=== PATIENT | female | born 1970 | race Caucasian/White ===

== ENCOUNTER 2020-02-25 07:32 | Outpatient (CLI) | payer BC, SELFPAY ==
--- NOTE | ~2020-02-25 | MR_ITS ---
EXAMINATION: MR cervical spine wo con EXAM DATE: 02/25/2020 09:16 INDICATION: R53.1 - Weakness . TECHNIQUE: Multi-sequential, multiplanar MR images of the cervical spine were obtained without contra st. Axial T2, axial T2 MERGE sequence. Sagittal T1, T2, T2 fat saturation images also obtained. Com parison is made to prior examination from 09/19/2004. FINDINGS: Mild to moderate disc disease at C5-6 and 6-7. The vertebral bodies are aligned in the AP dimension. There are no suspicious marrow signal abnormalities. Paraspinal soft tissue is unremarkabl e. The spinal cord signal intensity and intrinsic morphology is normal. Cervicomedullary junction is normal in appearance. Level by level evaluation: C2-C3: Disc does not extend beyond the endplate margin. Uncovertebral joint arthropathy: None. Facet joint arthropathy: Moderate right, mild left. Neural foraminal stenosis: No stenosis. Central canal stenosis: No stenosis. C3-C4: Disc does not extend beyond the endplate margin. Uncovertebral joint arthropathy: None. Facet joint arthropathy: Moderate to severe bilateral. Neural foraminal stenosis: No stenosis. Central canal stenosis: No stenosis. C4-C5: There is a minimal diffuse disc bulge. Uncovertebral joint arthropathy: None. Facet joint arthropathy: Severe right, moderate left. Neural foraminal stenosis: Mild right. Central canal stenosis: No stenosis. C5-C6: There is a mild diffuse disc bulge. Uncovertebral joint arthropathy: Mild bilateral. Facet joint arthropathy: Severe right, moderate left. Neural foraminal stenosis: No stenosis. Central canal stenosis: Mild. C6-C7: There is a mild diffuse disc bulge. Uncovertebral joint arthropathy: Mild to moderate bilateral. Facet joint arthropathy: Mild bilateral. Neural foraminal stenosis: Mild to moderate bilateral. Central canal stenosis: Mild. C7-T1: Disc does not extend beyond the endplate margin. Uncovertebral joint arthropathy: None. Facet joint arthropathy: None. Neural foraminal stenosis: No stenosis. Central canal stenosis: No stenosis. There is been interval progression in the facet arthropathy and disc disease compared to 2004. IMPRESSION: Some advanced mid cervical arthropathy without significant stenosis. Reviewed, dictated and finalized at location A. GER MOBILE IMPRESSION: Some advanced mid cervical arthropathy without significant stenosis .
--- NOTE | ~2020-02-25 | MR_ITS ---
EXAMINATION: MR brain/brain stem wo/w con EXAM DATE: 02/25/2020 09:16 INDICATION: R53.1 - Weakness . Left-sided paresthesia. Dizziness. TECHNIQUE: Magnetic resonance imaging (MRI) of the brain/brain stem obtained without contrast. Sagit marcelle T1, axial diffusion, gradient echo (T2*), T1, T2, FLAIR sequences obtained. Patient was then inj ected with 20 cc intravenous Multihance contrast. Axial and coronal postcontrast T1 weighted sequence s obtained. Comparison is made to prior examination from 04/06/2018. FINDINGS: There are no areas of restricted diffusion to suggest acute infarction. Minimal periventric ular hyperintensity, most likely microangiopathy unchanged. There is no acute hemorrhage seen on the T2*, a hemosiderin sensitive sequence. No intraparenchymal brain mass. The ventricles are normal in size. There are no extra-axial collections. Flow voids are seen in the cerebral arteries on the T2- weighted sequences consistent with their expected patency. The orbits are unremarkable. Soft tissue is unremarkable. Moderate left ethmoid mucoperiosteal thickening, mild thickening in the right eth moid and maxillary sinuses bilaterally. There are no areas of abnormal enhancement on the post contra st images. IMPRESSION: 1. Minimal microangiopathy. 2. Mild to moderate mucoperiosteal thickening. Reviewed, dictated and finalized at location A. [employer]PAR[employer]INKLER INSPECTOR
[2020-02-25 08:25] LABS: Estimated Glomerular Filt Rate > 60
== END 2020-02-25 07:33 | disposition home or self-care (01) ==
PROVIDERS: PCP Family Medicine; Visit Provider Physician Assistant
DX: R20.2 Paresthesia of skin (principal); R53.1 Weakness; R42 Dizziness and giddiness
CPT/HCPCS: 70553; 72141; A9577

== ENCOUNTER 2021-06-28 20:20 | Emergency (ER) | payer BC, SELFPAY ==
[2021-06-28] VITALS (8 sets, daily range): BP systolic 150–177; BP diastolic 89–94; PULSE 73–103; RESP 12–19; TEMP 36.5; O2SAT 100
--- NOTE | ~2021-06-28 | XR_ITS ---
EXAMINATION: XR chest 2V DATE: 06/28/2021 22:30 INDICATION: Left-sided chest pain TECHNIQUE: AP and lateral views of the chest are obtained. COMPARISON: 04/14/2015 FINDINGS: The lungs are free of acute opacities. There is no pleural effusion or pneumothorax. The ca rdiomediastinal silhouette is normal. There is mild thoracic spondylosis. IMPRESSION: 1. No acute cardiopulmonary abnormality. Reviewed, dictated and finalized at location F.
--- NOTE | 2021-06-28 20:30 | ECG_ITS ---
Measurements Intervals [place] Rate: 83 P: 40 UT: 170 QRS: 9 QRSD: 89 T: 29 QT: 376 QTc: 443 Interpretive Statements SINUS RHYTHM LOW QRS VOLTAGE IN PRECORDIAL LEADS [QRS DEFLECTION < 1.0 mV IN CHEST LEADS] NO PREVIOUS ECG AVAILABLE FOR COMPARISON Electronically Signed On 06-29-2021 20:46:04 CDT by Janice Meade M.D.
[2021-06-28 22:23] LABS: Basophils Absolute Auto 0.1 K/mm3 (0.0-0.1); Basophils Percent Auto 0.6 % (0.2-1.2); Eosinophils Absolute Auto 0.2 K/mm3 (0-0.3); Eosinophils Percent Auto 1.8 % (0-4.4); Hematocrit 39.2 % (37.0-47.0); Hemoglobin 12.2 g/dL (12.0-15.0); Immature Granulocyte Absolute 0.04 K/mm3 (0.00-0.031); Immature Granulocyte Percent A 0.5 % (0-0.5); Lymphocytes Absolute Auto 2.23 K/mm3 (0.9-3.2); Mean Corpuscular HGB Conc 31.1 g/dl (32-36); Mean Corpuscular Volume 93.3 fl (80-100); Mean Platelet Volume 11.1 fl (7.4-10.4); Monocytes Absolute Auto 0.6 K/mm3 (0.1-0.6); Monocytes Percent Auto 6.9 % (2.6-8.5); Neutrophils Absolute Auto 5.2 K/mm3 (1.3-6.7); Neutrophils Percent Auto 63.2 % (45.5-73.1); Platelet Count Result 251 k/mm3 (150-375); Red Cell Distribution Width 13.2 % (11.5-14.5); White Blood Count 8.3 K/mm3 (4.5-10.0)
[2021-06-28 22:36] LABS: Alanine Aminotransferase 28 U/L (4-35); Albumin Level 4.6 g/dL (3.5-5.1); Alkaline Phosphatase 100 U/L (38-126); Anion Gap 8 mmol/L (8-16); Aspartate Amino Transferase 31 U/L (14-36); Bilirubin,Total 0.3 mg/dL (0.2-1.3); Blood Urea Nitrogen 17 mg/dL (7-17); Calcium 9.2 mg/dL (8.4-10.2); Carbon Dioxide 28 mmol/L (22-30); Chloride 105 mmol/L (98-107); Estimated CRCL calculation 81 ml/min; Estimated Glomerular Filt Rate > 60; Glucose 119 mg/dL (65-110); Potassium 3.7 mmol/L (3.4-5.0); Sodium 141 mmol/L (137-145)
[2021-06-28 22:48] LABS: NT Pro B Type Natriuretic Pept 19 pg/mL (5-100); Troponin I < 0.012 ng/mL (0.000-0.034)
--- NOTE | 2021-06-29 00:10 | ED.GENADULT ---
HPI - General Adult General Chief complaint: Arrhythmia/Palpitations Stated complaint: left jaw pain that goes down left arm Time Seen by Provider: 06/28/21 22:56 Source: patient Mode of arrival: ambulatory Limitations: no limitations History of Present Illness HPI narrative: 50-year-old with a history of asthma, hypothyroidism, vitamin D deficiency here with complaints of left-sided pain started this afternoon. Patient states that her entire left side has been hurting. She states that pain started in the left chest and radiated to her neck into her legs. She also states that while she was in the adventist this evening, she started having pain associated with nausea. She denies any shortness of breath, cough or fever or chills. Denies lifting any heavy objects. Onset (ago): hour(s) (6) Location: neck, chest, left and lower extremity Severity: moderate Pain Consistency: constant Relieving factors: none Exacerbating factors: none Associated symptoms: denies other symptoms Related Data Allergies Allergy/AdvReac Type Severity Reaction Status Date / Time latex Allergy Unknown Asthma Verified 06/28/21 22:56 Sulfa (Sulfonamide Allergy Unknown Rash Verified 06/28/21 22:56 Antibiotics) Review of Systems Review of Systems: All systems reviewed & are unremarkable except as noted in HPI and below Constitutional: Constitutional: Reports no additional constitutional complaints Eyes: Eyes: Reports no additional eye complaints ENT: Reports system reviewed and no additional complaints, except as documented Cardiovascular: Cardiovascular: Reports as per HPI Respiratory: Respiratory: Reports no additional respiratory complaints Gastrointestinal: Gastrointestinal: Reports nausea Musculoskeletal: Musculoskeletal: Reports as per HPI Neurologic: Reports system reviewed and no additional complaints, except as documented [facility] Past Medical History Medical History Anemia Asthma Diverticulitis severe diverticulitis with sepsis 09/2018 Family history of colon cancer in father Hypothyroidism Migraine without aura, not intractable, without status migrainosus Screening breast examination 2014 Vitamin D deficiency Surgical History Surgical History H/O arthroscopy of knee 1996 H/O section 2003 H/O colonoscopy 2013 History of bilateral tubal ligation History of cholecystectomy 2002 History of hysterectomy, supracervical (05/12/20) Family History Family History Mother Family history of thyroid disease Family history of cardiovascular disease Family history of chronic obstructive pulmonary disease Acute myocardial infarction Father Hypertension, Onset Age: 77 Family history of malignant neoplasm, Onset Age: 77 Family history of chronic obstructive pulmonary disease, Onset Age: 77 Family history of emphysema, Onset Age: 77 Social History Social History Smoking end date: 03/04/00 Alcohol intake: current Exam Narrative: GENERAL: Well-appearing, well-nourished, and in no acute distress. HEAD: Normocephalic, atraumatic. EYES: PERRLA and EOMI. NECK: Supple. CHEST: Clear to auscultation. No respiratory distress. HEART: Regular rate and rhythm. No murmur heard. Normal peripheral pulses. ABDOMEN: Soft, nontender, nondistended, normal active bowel sounds. EXTREMITIES: Normal range of motion. No edema. SKIN: Warm, dry, no rash. NEURO: No focal deficits. Alert and oriented x3. PSYCH: Normal mood and affect. Course Course Emergency Course: Inform patient and her about her lab work, EKG findings. Cause of her pain could be musculoskeletal or could be anxiety does not appear to be cardiac at this time. Advised her to continue her home medication, take pain medication
[2021-06-29 00:21] VITALS: PULSE 82; RESP 14; O2SAT 99
[2021-06-29 00:33] VITALS: PULSE 78; RESP 21; O2SAT 99
== END 2021-06-29 00:30 | disposition home or self-care (01) ==
PROVIDERS: Emergency Provider Family Medicine; PCP Family Medicine
DX: R07.89 Other chest pain (principal); E03.9 Hypothyroidism, unspecified; J45.909 Unspecified asthma, uncomplicated; E55.9 Vitamin D deficiency, unspecified; Z86.2 Personal history of diseases of the blood and blood-forming organs and certain disorders involving the immune mechanism; Z87.891 Personal history of nicotine dependence
CPT/HCPCS: 36415; 71046; 80053; 83880; 84484; 85025; 93005; 99284

== ENCOUNTER 2022-01-12 09:33 | Outpatient (CLI) | payer BC, SELFPAY ==
[2022-01-12 18:17] LABS: Cholesterol 158 mg/dL (0-200); HDL Direct 33 mg/dL; Triglycerides 198 mg/dL (<150)
[2022-01-12 18:28] LABS: LDL Cholesterol Direct 72 mg/dL
[2022-01-13 04:24] LABS: Free T4 Free Thyroxine Reflex 1.24 ng/dL (0.78-2.19)
[2022-01-13 05:58] LABS: Total Triiodothyronine (T3) 1.01 NG/ML (0.97-1.69)
== END 2022-01-12 09:34 | disposition home or self-care (01) ==
LOC: ANHGOSHLAB 09:36
PROVIDERS: PCP Family Medicine; Visit Provider Family Medicine
DX: E78.5 Hyperlipidemia, unspecified (principal); E03.9 Hypothyroidism, unspecified
CPT/HCPCS: 36415; 80061; 84439; 84443; 84480

== ENCOUNTER 2022-03-13 08:11 | Outpatient (CLI) | payer BC, SELFPAY ==
[2022-03-13 20:38] LABS: Thyroid Stimulating Hormone Reflex 0.084 uIU/mL (0.465-4.68)
[2022-03-13 21:18] LABS: Free T4 Free Thyroxine Reflex 1.38 ng/dL (0.78-2.19)
[2022-03-13 21:58] LABS: Total Triiodothyronine (T3) 1.27 NG/ML (0.97-1.69)
== END 2022-03-13 08:12 | disposition home or self-care (01) ==
LOC: ANHGOSHLAB 08:12
PROVIDERS: PCP Family Medicine; Visit Provider Family Medicine
DX: E03.9 Hypothyroidism, unspecified (principal)
CPT/HCPCS: 36415; 84439; 84443; 84480

== ENCOUNTER 2022-06-15 16:07 | Outpatient (CLI) | payer BC, SELFPAY ==
[2022-06-15 19:59] LABS: Free T4 Free Thyroxine Reflex 0.82 ng/dL (0.78-2.19)
[2022-06-15 21:10] LABS: Total Triiodothyronine (T3) 0.92 NG/ML (0.97-1.69)
== END 2022-06-15 16:08 | disposition home or self-care (01) ==
LOC: ANHGOSHLAB 16:07
PROVIDERS: PCP Family Medicine; Visit Provider Family Medicine
DX: E03.9 Hypothyroidism, unspecified (principal)
CPT/HCPCS: 36415; 84439; 84443; 84480

== ENCOUNTER 2022-08-06 14:41 | Outpatient (CLI) | payer BC, SELFPAY ==
[2022-08-06 20:31] LABS: Alanine Aminotransferase 28 U/L (6-35); Albumin Level 4.1 g/dL (3.5-5.1); Alkaline Phosphatase 104 U/L (38-126); Anion Gap 4 mmol/L (8-16); Aspartate Amino Transferase 36 U/L (14-36); Bilirubin,Total 0.4 mg/dL (0.2-1.3); Blood Urea Nitrogen 17 mg/dL (7-17); Carbon Dioxide 35 mmol/L (22-30); Chloride 105 mmol/L (98-107); Estimated Glomerular Filt Rate > 60; Glucose 101 mg/dL (65-110); Potassium 3.6 mmol/L (3.4-5.0); Sodium 144 mmol/L (137-145)
[2022-08-06 20:54] LABS: Thyroid Stimulating Hormone Reflex 0.028 uIU/mL (0.465-4.68)
[2022-08-06 21:37] LABS: Free T4 Free Thyroxine Reflex 1.23 ng/dL (0.78-2.19)
[2022-08-06 22:20] LABS: Total Triiodothyronine (T3) 1.22 NG/ML (0.97-1.69)
== END 2022-08-06 14:42 | disposition home or self-care (01) ==
LOC: ANHGOSHLAB 14:41
PROVIDERS: PCP Family Medicine; Visit Provider Family Medicine
DX: Z13.29 Encounter for screening for other suspected endocrine disorder (principal); Z13.228 Encounter for screening for other metabolic disorders
CPT/HCPCS: 36415; 80053; 84439; 84443; 84480

== ENCOUNTER 2023-04-04 08:17 | Outpatient (CLI) | payer BC, SELFPAY ==
[2023-04-04 14:44] LABS: Free T4 Free Thyroxine Reflex 0.88 ng/dL (0.78-2.19)
[2023-04-04 15:25] LABS: Total Triiodothyronine (T3) 0.93 NG/ML (0.97-1.69)
== END 2023-04-04 08:18 | disposition home or self-care (01) ==
LOC: ANHGOSHLAB 08:19
PROVIDERS: PCP Family Medicine; Visit Provider Family Medicine
DX: Z13.29 Encounter for screening for other suspected endocrine disorder (principal)
CPT/HCPCS: 36415; 84439; 84443; 84480

== ENCOUNTER 2023-05-24 09:17 | Outpatient (CLI) | payer BC, SELFPAY ==
[2023-05-24 16:27] LABS: Thyroid Stimulating Hormone 0.443 uIU/mL (0.465-4.680)
== END 2023-05-24 09:18 | disposition home or self-care (01) ==
LOC: ANHGOSHLAB 09:18
PROVIDERS: PCP Family Medicine; Visit Provider Family Medicine
DX: E03.9 Hypothyroidism, unspecified (principal)
CPT/HCPCS: 36415; 84443

== ENCOUNTER 2024-02-14 10:58 | Observation (INO) | payer BC, SELFPAY ==
--- NOTE | ~2024-02-14 | CT_ITS ---
CT of the Abdomen and Pelvis: Indication: Diverticulitis Technique: 2.5 mm axial scans were obtained through the abdomen and pelvis following intravenous adm inistration of 100 cc of Omnipaque 350. Dose reduction technique was used on this scan by utilizing a utomated exposure control and iterative reconstruction technique. The dose-length product (DLP) was 1 122.68 mGy-cm. Findings: Scans through the lung bases are unremarkable. Minimal pericardial fluid noted. The liver, spleen, pancreas, adrenals and kidneys are within normal limits. Cholecystectomy clips are present. No evidence of aortic aneurysm. No lymphadenopathy. There is wall thickening sigmoid colon with pericolic inflammatory change and underlying diverticulos is. Findings are consistent with acute diverticulitis. No abscess or free air evident. Small fat-cont aining ventral hernia noted inferior to the umbilicus. No bowel obstruction. There is a 3 cm benign-a ppearing cystic mass in the right mid abdomen (axial image 107). Images through the pelvis were performed. Urinary bladder unremarkable. No pelvic mass seen. No ascit es. Impression: Acute sigmoid diverticulitis, as detailed above. No abscess or free air. Small fat-containing ventral hernia inferior to the umbilicus. Benign-appearing 3 cm cystic mass in the right mid abdomen. This is essentially stable dating back to prior CT scan dated 09/15/2018. Reviewed, dictated and finalized at [facility]. [employer] Impression: Acute sigmoid diverticulitis, as detailed above. No abscess or free air. Small fat-containing ventral hernia inferior to the umbilicus. Benign-appearing 3 cm cystic mass in the right mid abdomen. This is essentially stable dating back to prior CT scan dated 09/15/2018.
[2024-02-14 11:25] VITALS: BP 173/91; PULSE 96; RESP 20; TEMP 36.4; O2SAT 100
[2024-02-14 11:40] VITALS: BP 141/84; PULSE 86; RESP 20; TEMP 36.7; O2SAT 100
[2024-02-14 12:07] LABS: Basophils Absolute Auto 0.1 K/mm3 (0.0-0.1); Basophils Percent Auto 0.6 % (0.2-1.2); Eosinophils Absolute Auto 0.1 K/mm3 (0-0.3); Eosinophils Percent Auto 0.9 % (0-4.4); Hemoglobin 12.3 g/dL (12.0-15.0); Immature Granulocyte Absolute 0.05 K/mm3 (0.00-0.031); Immature Granulocyte Percent A 0.5 % (0-0.5); Lymphocytes Absolute Auto 1.76 K/mm3 (0.9-3.2); Lymphocytes Percent Auto 17.2 % (18.3-44.2); Mean Corpuscular HGB Conc 32.4 g/dl (32-36); Mean Corpuscular Hemoglobin 29.5 pg (26-34); Mean Corpuscular Volume 91.1 fl (80-100); Mean Platelet Volume 11.2 fl (7.4-10.4); Monocytes Absolute Auto 0.6 K/mm3 (0.1-0.6); Monocytes Percent Auto 5.6 % (2.6-8.5); Neutrophils Absolute Auto 7.7 K/mm3 (1.3-6.7); Neutrophils Percent Auto 75.2 % (45.5-73.1); Platelet Count Result 277 k/mm3 (150-375); Red Blood Count 4.17 M/mm3 (4.2-5.4); Red Cell Distribution Width 13.2 % (11.5-14.5); White Blood Count 10.2 K/mm3 (4.5-10.0)
[2024-02-14 12:16] LABS: Add Urine Microscopic? YES; Appearance Urine Clear (Clear); Bacteria Urine Rare /hpf; Bilirubin Urine Negative (Negative); Blood Urine Negative (Negative); Color Urine Yellow (Yellow); Glucose Urine UA Negative (Negative); Ketones Urine 3+ mg/dL (Negative); Leukocyte Esterase Ur Negative LEU/UL (Negative); Nitrate Urine Negative (Negative); Non Pathogenic Casts 0-2; Protein Urine 1+ mg/dL (Negative); RBC Urine 0-2 /hpf (0-2); Squamous Epithelial Cell Urine Moderate /hpf (Few); WBC Urine 0-5 /hpf (0-3)
[2024-02-14 12:19] LABS: Alanine Aminotransferase 45 U/L (6-35); Albumin Level 4.7 g/dL (3.5-5.1); Alkaline Phosphatase 111 U/L (38-126); Anion Gap 6 mmol/L (4-12); Aspartate Amino Transferase 34 U/L (14-36); Bilirubin,Total 0.9 mg/dL (0.2-1.3); Blood Urea Nitrogen 13 mg/dL (7-17); Calcium 9.2 mg/dL (8.4-10.2); Carbon Dioxide 31 mmol/L (22-30); Chloride 103 mmol/L (98-107); Estimated CRCL calculation 72 ml/min; Estimated Glomerular Filt Rate 58; Glucose 102 mg/dL (65-110); Potassium 3.4 mmol/L (3.4-5.0); Sodium 140 mmol/L (137-145)
[2024-02-14] MEDS: MORPHINE SULFATE (*CRX) 2 MG/ML INJ IV PUSH (12:22)
[2024-02-14] MEDS: ONDANSETRON INJ 4 MG/2 ML VIAL IV PUSH ×2 (12:23→18:05)
--- OUTSIDE RECORDS SUMMARY | 2024-02-14 12:46 | XMS_ITS | Continuity of Care Document ---
Author Organization [facility] Address [address] [facility] [address] [place] [address] Phone Care Team Providers Care Manager Of Quality Name Role Phone Darron Amishpatti Unavailable Unavailable Advance Directives Directive Yes / No Effective Date File Name No Information Encounters Encounter Description Practice Location Reason(s) For Visit Diagnoses Date Provider Providers Copied on Encounter Formerly [facility], [address], [place], [place], [id number], [place] tel:[phone] [facility] No Information 1-[address] Doisy Edward. [address] , [address], [place], [address], [place]. tel:[phone] Family History Family Member Type Diagnosis Age At Onset No Information Payers Payer name Insurance type Covered alliance party ID Authoriza tion(s) No Information Social History Type Description Quantity Date Captured Comments Sex Female Smoking Status No Information Chief Complaint And Reason For Visit No Information Reason For Referral Reason For Referral No Information History Of Present Illness Encounter Date Complaint History Of Prese nt Illness No Information Functional Status Date Functional Assessmen t No Information Instructions Date Instruction Additional Infor mation No Information Assessments Type Assessment Date No Information Patient Care Teams Name Effective Dates (start - stop) Status Members No Information
--- OUTSIDE RECORDS SUMMARY | 2024-02-14 12:46 | XMS_ITS | Continuity of Care Document ---
Author Organization [facility] Address [address] [place] [address] Phone Care Team Providers Care Senior Contracts Administrator Name Role Phone Mason PT,MPT,ATC, Alberto Unavailable Unavai lable Procedures Procedure Date PT Evaluation Moderate Complexity Neuromuscular Re-Ed Therapeutic Activities Advance Directives Directive Yes / No Effective Date File Name No Information Encounters Encounter Description Practice Location Reason(s) For Visit Diagnoses Date Provider Providers Copied on Encounter [facility], [address], [place], [place], [id number], [place] tel:[phone] [place] No Information ANGELY Gomez, . Referring Provider: Alise Preston, [address] [place], [address]. tel:[phone] Family History Family Member Type Diagnosis Age At Onset No Information Payers Payer name Insurance type Covered republican ID Authoriza tizelda(s) [facility] [id number] Social History Type Description Quantity Date Captured Comments Alcohol Use Details Unknown Caffeine Use Details Unknown Tobacco Use Status Current non-smoker Smoking Status Never smoker Non-Smoking Tobacco Use Details : No Details Available : No Details Available Sex Female Vital Signs Date / Time: Height Weight BMI Pulse Rate Blood Pressure Temperature Respiratory Rate Body Surface Area Head Circumference Head Circ. Percentile Wt./[place]. Percentile BMI percentile Pulse Ox Inhaled Ox 2:48 PM 67.00 in 108.860 kg (240.00 lbs) 37.5 9 kg/m eter (2) 2.27 meter(2) Chief Complaint And Reason For Visit No Information Reason For Referral Reason For Referral No Information History Of Present Illness Encounter Date Complaint History Of Prese nt Illness No Information Functional Status Date Functional Assessmen t No Information Instructions Date Instruction Additional Infor bran Giving encouragement to exercise Related to Overweight Giving encouragement to exercise Related to Overweight Assessments Type Assessment Date No Information Patient Care Teams Name Effective Dates (start - stop) Status Members No Information
[2024-02-14 13:35] VITALS: BP 148/73; PULSE 64; RESP 20; TEMP 36.7; O2SAT 100
[2024-02-14] MEDS: HYDROmorphone HCL INJ (*CRX) 1 MG/ML SYR 0.5 MG IV PUSH (14:01)
--- NOTE | 2024-02-14 14:51 | ED.ABDPAIN ---
HPI - Abdominal Pain General Chief Complaint: Abdominal Pain Stated Complaint: diverticulitis? Time Seen by Provider: 02/14/24 11:48 History of Present Illness HPI narrative: Patient with left lower quadrant pain started the last day or 2, feels like when she had diverticulitis. Also some sharp pain to the right upper quadrant. Nauseous Related Data Allergies Allergy/AdvReac Type Severity Reaction Status Date / Time latex Allergy Unknown Asthma Verified 02/14/24 13:04 Sulfa (Sulfonamide Allergy Unknown Rash Verified 02/14/24 13:04 Antibiotics) Review of Systems Review of Systems: All systems reviewed & are unremarkable except as noted in HPI and below PMFSH Past Medical History Medical History Family history of colon cancer in father Migraine without aura, not intractable, without status migrainosus Asthma Anemia Diverticulitis severe diverticulitis with sepsis 09/2018 Vitamin D deficiency Hypothyroidism Screening breast examination 2014 Surgical History Surgical History History of hysterectomy, supracervical (05/12/20) History of bilateral tubal ligation H/O arthroscopy of knee 1996 History of cholecystectomy 2001 H/O section 2003 H/O colonoscopy 2012 Family History Family History Mother Family history of thyroid disease Family history of cardiovascular disease Family history of chronic obstructive pulmonary disease Acute myocardial infarction Father Hypertension, Onset Age: 77 Family history of malignant neoplasm, Onset Age: 77 Family history of chronic obstructive pulmonary disease, Onset Age: 77 Family history of emphysema, Onset Age: 77 Social History Social History Social History: caffeine 1-2 cups coffee daily Smoking status: Former smoker Smoking end date: 03/04/00 Alcohol intake: current Alcohol use details: social Substance use: never Do You Feel Safe in your Home?: Yes Lack of Transportation: No Lack of Food: Never True Current Housing: I Have Housing Concerned About Future Housing: No Difficulty Paying Gas/Electric Bills: No Difficulty Paying for Meds: No Currently Unemployed: No Education: High School Diploma/GED Difficulty w/ Childcare or Family Care: No Exam Narrative: EXAMINATION OF ORGAN SYSTEMS/BODY AREAS: Constitutional: Vital signs per nursing GENERAL:[No acute distress, non-toxic appearing.] HEAD: Normal with no signs of head trauma. EYES: EOMI, conjunctiva normal ENT: Hearing grossly intact LUNGS: Nonlabored breathing. HEART: [Regular rate and rhythm] ABD: [Soft], tender to palpation lower abdomen EXT: Normal range of motion SKIN: [No rashes or lesions.] NEURO: [Alert and oriented x 3. No gross focal sensory or strength deficits.] PSYCH: Normal affect Course Vital Signs Vital signs: Vital Signs Temperature 97.6 F 02/14/24 11:25 Pulse Rate 96 02/14/24 11:25 Respiratory Rate 20 02/14/24 11:25 Blood Pressure 173/91 H 02/14/24 11:25 Pulse Oximetry 100 02/14/24 11:25 Oxygen Delivery Room Air 02/14/24 11:25 Temperature 98.0 F 02/14/24 13:35 Pulse Rate 64 02/14/24 13:35 Respiratory Rate 20 02/14/24 13:35 Blood Pressure 148/73 H 02/14/24 13:35 Pulse Oximetry 100 02/14/24 13:35 Oxygen Delivery Room Air 02/14/24 11:25 MDM - Abdominal Pain MDM Narrative Medical decision making narrative: Electronic medical record was reviewed. Patient presented to the ED with complaint of [abdominal pain and vomiting]. Vitals [were within acceptable limits]. Physical exam revealed [tenderness to palpation lower abdomen]. Based on the patient's history and physical exam, my differential includes but is not limited to [gastritis, gastroenteritis, pancreatitis, appendicitis, SBO, diverticulitis]. [IV access was established by nursing staff. Patient was given zofran, morphine]. CBC, BMP, lipase, LFTs, bilirubin and alk phos were obtained. Labs were pertinent for WBC 10.2. [Decision was made to obtain a CT-abdomen to evaluate for acute abdominal process. shows divertculitis] On reevaluation, the patient states that they are still in severe pain, like to be admitted if possible. Additional dose of Dilaudid given, discussed with hospitalist for admission. Lab Data 02/14/24 12:01 02/14/24 12:01 Labs: Lab Results 02/14/24 Range/Units 12: WBC 10.2 H (4.5-10.0) K/mm3 RBC 4.17 L (4.2-5.4) M/mm3 Hgb 12.3 (12.0-15.0) g/dL Hct 38.0 (37.0-47.0) % MCV 91.1 (80-100) fl MCH 29.5 (26-34) pg MCHC 32.4 (32-36) g/dl RDW 13.2 (11.5-14.5) % Plt Count 277 (150-375) k/mm3 MPV 11.2 H (7.4-10.4) fl Immature Gran % (Auto) 0.5 (0-0.5) % Neut % (Auto) 75.2 H (45.5-73.1) % Lymph % (Auto) 17.2 L (18.3-44.2) % [place] % (Auto) 5.6 (2.6-8.5) % Eos % (Auto) 0.9 (0-4.4) % Baso % (Auto) 0.6 (0.2-1.2) % Lymph # (Auto) 1.76 (0.9-3.2) K/mm3 [place] # (Auto) 0.6 (0.1-0.6) K/mm3 Eos # (Auto) 0.1 (0-0.3) K/mm3 Baso # (Auto) 0.1 (0.0-0.1) K/mm3 Abs Immat Gran (auto) 0.05 H (0.00-0.031) K/mm3 Absolute Neuts (auto) 7.7 H (1.3-6.7) K/mm3 Absolute Nucleated RBC 0.000 (0.0-0.012) K/mm3 Nucleated RBC % 0.0 (0.0-0.2) % Sodium 140 (137-145) mmol/L Potassium 3.4 (3.4-5.0) mmol/L Chloride 103 (98-107) mmol/L Carbon Dioxide 31 H (22-30) mmol/L Anion Gap 6 (4-12) mmol/L BUN 13 (7-17) mg/dL Creatinine 1.00 (0.7-1.0) mg/dL Estim Creat Clear Calc 72 ml/min Estimated GFR 58 L (59 - ) Glucose 102 (65-110) mg/dL Calcium 9.2 (8.4-10.2) mg/dL Total Bilirubin 0.9 (0.2-1.3) mg/dL AST 34 (14-36) U/L ALT 45 H (6-35) U/L Alkaline Phosphatase 111 (38-126) U/L Total Protein 8.0 (6.3-8.2) g/dL Albumin 4.7 (3.5-5.1) g/dL Urine Color Yellow (Yellow) Urine Appearance Clear (Clear) Urine pH 6.0 (5.0-9.0) Ur Specific [place] 1.020 (1.001-1.035) Urine Protein 1+ H (Negative) mg/dL Urine Glucose (UA) Negative (Negative) mg/dL Urine Ketones 3+ H (Negative) mg/dL Ur Blood (Man) Negative (Negative) Urine Nitrate Negative (Negative) Urine Bilirubin Negative (Negative) Urine Urobilinogen 1.0 (<2.0) mg/dL Leukocyte Esterase Rfl Negative (Negative) YANETH/UL Urine RBC 0-2 (0-2) /hpf Urine WBC 0-5 (0-3) /hpf Ur Squamous Epith Cells Moderate (Few) /hpf Urine Bacteria Rare /hpf Urine Casts 0-2 Imaging Data Radiologist's impression: ITS Impressions Abdomen/Pelvis CT 02/14/24 13:09 Impression: Acute sigmoid diverticulitis, as detailed above. No abscess or free air. Small fat-containing ventral hernia inferior to the umbilicus. Benign-appearing 3 cm cystic mass in the right mid abdomen. This is essentially stable dating back to prior CT scan dated 09/15/2018. Discharge Plan Discharge Clinical Impression: Diverticulitis Patient Disposition: Still a Patient Condition: Stable Patient Language: Indonesian Prescriptions: No Action ergocalciferol (vitamin D2) 1,250 mcg (50,000 unit) capsule See Rx Instructions .ROUTE .COMPLEX Qty: 14 3RF Dose Instruction: TAKE 1 CAPSULE WEEKLY Rx Instructions: TAKE 1 CAPSULE WEEKLY budesonide-formoterol [Symbicort] 160-4.5 mcg/actuation HFA aerosol inhaler 2 inh inhalation DAILY Qty: 10.2 2RF lorazepam 0.5 mg tablet 0.5 mg PO DAILY PRN (Reason: anxiety) Qty: 4 0RF albuterol sulfate [ProAir HFA] 90 mcg/actuation HFA aerosol inhaler 2 puff INHALATION Q4H PRN (Reason: Shortness Of Breath) Qty: 18 5RF atorvastatin 20 mg tablet 20 mg PO QHS Qty: 90 1RF levothyroxine 175 mcg tablet 175 mcg PO DAILY Qty: 90 0RF Follow-up/Referrals: Denilson Larson, [Primary Care Provider] -
[2024-02-14 15:18] VITALS: BP 129/75; PULSE 70; RESP 18; TEMP 36.1; O2SAT 100
--- NOTE | 2024-02-14 15:29 | PM.IMHP ---
H&P: HPI History of Present Illness Date/Time: 02/14/24 15:29 Chief Complaint: Lower Abdominal Pain Narrative: 53 y/o F presents here with lower abdominal pain with PMH of diverticulitis, migraine, asthma, anemia, hypothyroidism, and vitamin-D deficiency. The patient presents here from home for further evaluation of lower abdominal pain. She reports onset of abdominal pain on Saturday evening. Initially was very mild discomfort. Then on Saturday (02/09) the pain became more severe. She attempted to treat at home with reducing her food intake and pushing fluids. Despite her best efforts the symptoms did not resolve. She describes this as right upper that is occasionally stabbing, bilateral/lower/pressure, nonradiating, constant, no aggravating factors, and no alleviating factors. Pain is accompanied by nausea without vomiting, diarrhea, and chills. Diarrhea started on Saturday, small volumes, and preceded by pressure sensation. She denies any current fever or body aches. Did have a fever Saturday night, 100.5F. She has a past medical history of diverticulitis with last hospitalization 5 years ago. Has previously been exacerbated by garlic, did have bread knots with garlic approximately 1.5 weeks ago. Initial VS at presentation: 97.6? F, HR 96, R 20, 173/91, and 100% on RA. ED workup showed: WBC 10.2, no anemia, no significant electrolyte derangements, creatinine 1.0 and GFR 58, and UA showed 1+ protein and 3+ ketones otherwise unremarkable. CT of the abdomen/pelvis showed acute sigmoid diverticulitis with no abscess or free air, small fat containing ventral hernia inferior to the umbilicus, and a benign-appearing 3 cm 6 with mass in the right mid abdomen (essentially stable since CT on 09/15/2018). Review of Systems Review of Systems: All systems reviewed & are unremarkable except as noted in HPI and below PMFSH Past Medical History Medical History Family history of colon cancer in father Migraine without aura, not intractable, without status migrainosus Asthma Anemia Diverticulitis severe diverticulitis with sepsis 09/2018 Vitamin D deficiency Hypothyroidism Screening breast examination 2014 Surgical History Surgical History History of hysterectomy, supracervical (05/12/20) History of bilateral tubal ligation H/O arthroscopy of knee 1996 History of cholecystectomy 2001 H/O section 2003 H/O colonoscopy 2012 Family History Family History Mother Family history of thyroid disease Family history of cardiovascular disease Family history of chronic obstructive pulmonary disease Acute myocardial infarction Father Hypertension, Onset Age: 77 Family history of malignant neoplasm, Onset Age: 77 Family history of chronic obstructive pulmonary disease, Onset Age: 77 Family history of emphysema, Onset Age: 77 Social History Social History Social History: caffeine 1-2 cups coffee daily Smoking status: Former smoker Tobacco type: cigarettes Smoking end date: 04/03/00 Alcohol intake: never Alcohol use details: social Substance use: never Do You Feel Safe in your Home?: Yes Lack of Transportation: No Lack of Food: Never True Current Housing: I Have Housing Concerned About Future Housing: No Difficulty Paying Gas/Electric Bills: No Difficulty Paying for Meds: No Currently Unemployed: No Education: High School Diploma/GED Difficulty w/ Childcare or Family Care: No Spiritual care concerns: No Meds Home Medications and Allergies Home Medications ?Medication ?Instructions ?Recorded ?Confirmed ?Type ergocalciferol (vitamin D2) 1,250 See Rx Instructions .Route 11/29/22 02/14/24 Rx mcg (50,000 unit) capsule .COMPLEX #14 caps budesonide-formoterol HFA 160 2 inh inhalation DAILY #10.2 grams 11/30/22 02/14/24 Rx mcg-4.5 mcg/actuation aerosol inhaler (Symbicort) albuterol sulfate 90 mcg/actuation 2 puff inhalation Q4H PRN 08/22/23 02/14/24 Rx aerosol inhaler (ProAir HFA) Shortness Of Breath #18 grams atorvastatin 20 mg tablet 20 mg PO QHS #90 tabs 01/13/24 02/14/24 Rx levothyroxine 175 mcg tablet 175 mcg PO DAILY #90 tabs 01/20/24 02/14/24 Rx Allergies Allergy/AdvReac Type Severity Reaction Status Date / Time latex Allergy Unknown Asthma Verified 02/14/24 13:04 Sulfa (Sulfonamide Allergy Unknown Rash Verified 02/14/24 13:04 Antibiotics) Vital Signs Vital Signs - 24 hr 02/14/24 11:25 02/14/24 11:40 02/14/24 13:35 Temperature 97.6 F 98.1 F 98.0 F Pulse Rate 96 86 64 Respiratory Rate 20 20 20 Blood Pressure 173/91 H 141/84 H 148/73 H Pulse Oximetry 100 100 100 Oxygen Delivery Room Air 02/14/24 15:18 Temperature 97.0 F L Pulse Rate 70 Respiratory Rate 18 Blood Pressure 129/75 Pulse Oximetry 100 Oxygen Delivery Exam Const: General: comfortable and no acute distress Other: , female, obese body habitus HENMT: Face/Nose/Sinus: Normal nares present Mouth: Yes moist mucous membranes Eyes: General: appearance normal, both eyes and all related structures Sclera: sclerae normal Pupils: Equal, round and reactive pupils present EOM: EOMs intact bilaterally Resp: Effort & Inspection: normal respiratory effort Auscultation: clear to auscultation bilaterally Cardio: Rate: regular rate Rhythm: regular rhythm Other: S1-S2 present without murmur, rub, ectopy GI: Auscultation: normal bowel sounds Other: Abdomen nondistended, soft. Tender in RUQ and bilateral lower quadrants. Skin: General skin exam: normal color and no rashes or lesions noted Wounds: no wounds Neuro: Speech: normal speech Motor exam (neuro): 5/5 motor strength present throughout Sensory Exam: normal sensation Other: A&O x4 Extrem: General: normal to inspection Psych: Mental Status: mental status grossly normal Affect: normal affect Other: Good insight and judgment, pleasant H&P: Results Labs Labs: Short CBC 02/14/24 Range/Units 12:01 WBC 10.2 H (4.5-10.0) K/mm3 Hgb 12.3 (12.0-15.0) g/dL Hct 38.0 (37.0-47.0) % Plt Count 277 (150-375) k/mm3 [facility] 02/14/24 12:01 Sodium 140 Potassium 3.4 Chloride 103 Carbon Dioxide 31 H BUN 13 Creatinine 1.00 Glucose 102 Calcium 9.2 Liver Function 02/14/24 Range/Units 12:01 Total Bilirubin 0.9 (0.2-1.3) mg/dL AST 34 (14-36) U/L ALT 45 H (6-35) U/L Alkaline Phosphatase 111 (38-126) U/L Albumin 4.7 (3.5-5.1) g/dL Urine 02/14/24 Range/Units 12:01 Urine Color Yellow (Yellow) Urine Appearance Clear (Clear) Urine pH 6.0 (5.0-9.0) Ur Specific [place] 1.020 (1.001-1.035) Urine Protein 1+ H (Negative) mg/dL Urine Glucose (UA) Negative (Negative) mg/dL Assessment and Plan Assessment and plan (1) Diverticulitis: Code(s): K57.92 - Diverticulitis of intestine, part unspecified, without perforation or abscess without bleeding Status: Acute Assessment and Plan: Acute noncomplicated sigmoid diverticulitis. Pain uncontrolled in the ED, requiring admission. - did not meet SIRS criteria, HR only - CT abd/pelvis: Acute sigmoid diverticulitis, as detailed above. No abscess or free air. Small fat-containing ventral hernia inferior to the umbilicus. Benign-appearing 3 cm cystic mass in the right mid abdomen. This is essentially stable dating back to prior CT scan dated 09/15/2018. - started on Zosyn on 02/13 - IV fluids: 1L bolus, now on 100 mL/hr. Monitor I&Os, DC when appropriate. - clear liquid diet - pain medication prn - daily clinical reassessment for improvement Plan Diet: Clear liquid GI Prophylaxis: Not currently indicated DVT Prophylaxis: SCDs Lines: Peripheral Code Status: Full code Quality VTE Prophylaxis VTE prophylaxis: mechanical ordered Hospitalist MIPS Advance Care Plan I have confirmed that the patient's Advanced Care Plan is present, code status is documented, or surrogate decision maker is listed in patient medical record.: Yes Medication Reconciliation I have utilized all available resources to obtain, update and review the patients current medications (includes all prescriptions, OTC, herbals, cannabis, and nutritional supplements).: Yes
[2024-02-14 17:44] VITALS: BMI 38.7
--- NOTE | 2024-02-14 17:53 | ADMGEN ---
This patient, Dianne Chaidez, was admitted to 3 [facility] Surg Room 309-01. Patient/family oriented to hospital policies and general routines including ID bracelet, bed and alarms, visiting hours, pain management, procedures, bathroom and other care routines, personal items, smoking policy, room service/diet, and visiting hours. Information on how to activate the Rapid Response Team has been discussed. Patient/Family are encouraged to report perceived risks to care and to ask questions if they do not understand what they are told or what they should do.
[2024-02-14] MEDS: LACTATED RINGERS 1,000 ML 999 ML IV CONT (18:05)
[2024-02-14] MEDS: PIPERACILLN/TAZ 3.375GM/NS50ML 3.375 GM/50 ML BAG IVPB ×2 (18:06→23:57)
[2024-02-14 18:09] VITALS: BP 120/84; PULSE 82; RESP 20; TEMP 36.4; O2SAT 100
[2024-02-14] MEDS: HYDROcodone/acetaminophen (*CRX) 5-325 MG TABLET 1 TAB PO (18:30)
[2024-02-14] MEDS: LACTATED RINGERS 1,000 ML 100 ML IV CONT (20:06)
[2024-02-14 22:00] VITALS: BP 118/67; PULSE 80; RESP 18; TEMP 36.4; O2SAT 97
[2024-02-14] MEDS: ATORVASTATIN 20 MG TABLET PO (23:57)
[2024-02-15] MEDS: ONDANSETRON INJ 4 MG/2 ML VIAL IV PUSH (05:30)
[2024-02-15] MEDS: PIPERACILLN/TAZ 3.375GM/NS50ML 3.375 GM/50 ML BAG IVPB ×4 (05:31→23:35)
[2024-02-15] MEDS: LEVOTHYROXINE SODIUM 100 MCG TABLET PO (05:31)
[2024-02-15] MEDS: LEVOTHYROXINE SODIUM 75 MCG TABLET PO (05:31)
[2024-02-15 06:00] VITALS: BP 116/72; PULSE 72; RESP 20; TEMP 36.2; O2SAT 98
[2024-02-15] MEDS: LACTATED RINGERS 1,000 ML 100 ML IV CONT (06:10)
[2024-02-15 06:31] LABS: Basophils Percent Auto 0.5 % (0.2-1.2); Eosinophils Absolute Auto 0.1 K/mm3 (0-0.3); Eosinophils Percent Auto 1.1 % (0-4.4); Hematocrit 33.7 % (37.0-47.0); Hemoglobin 10.5 g/dL (12.0-15.0); Immature Granulocyte Absolute 0.03 K/mm3 (0.00-0.031); Immature Granulocyte Percent A 0.4 % (0-0.5); Lymphocytes Absolute Auto 1.46 K/mm3 (0.9-3.2); Lymphocytes Percent Auto 17.8 % (18.3-44.2); Mean Corpuscular HGB Conc 31.2 g/dl (32-36); Mean Corpuscular Hemoglobin 28.9 pg (26-34); Mean Corpuscular Volume 92.8 fl (80-100); Mean Platelet Volume 11.4 fl (7.4-10.4); Monocytes Absolute Auto 0.7 K/mm3 (0.1-0.6); Monocytes Percent Auto 8.6 % (2.6-8.5); Neutrophils Absolute Auto 5.9 K/mm3 (1.3-6.7); Neutrophils Percent Auto 71.6 % (45.5-73.1); Platelet Count Result 238 k/mm3 (150-375); Red Blood Count 3.63 M/mm3 (4.2-5.4); Red Cell Distribution Width 13.3 % (11.5-14.5); White Blood Count 8.2 K/mm3 (4.5-10.0)
[2024-02-15 06:37] LABS: Anion Gap 2 mmol/L (4-12); Blood Urea Nitrogen 10 mg/dL (7-17); Calcium 8.4 mg/dL (8.4-10.2); Carbon Dioxide 31 mmol/L (22-30); Chloride 101 mmol/L (98-107); Estimated CRCL calculation 66 ml/min; Estimated Glomerular Filt Rate 52; Glucose 119 mg/dL (65-110); Sodium 134 mmol/L (137-145)
[2024-02-15] MEDS: POTASSIUM CHLORIDE 20 MEQ ER TABLET 40 MEQ PO (09:44)
[2024-02-15] MEDS: HYDROcodone/acetaminophen (*CRX) 5-325 MG TABLET 1 TAB PO (09:46)
[2024-02-15 14:00] VITALS: BP 114/75; PULSE 69; RESP 18; TEMP 36.3; O2SAT 98
--- NOTE | 2024-02-15 15:15 | PM.IMPN ---
Progress Note: A&P Assessment and Plan (1) Diverticulitis: Code(s): K57.92 - Diverticulitis of intestine, part unspecified, without perforation or abscess without bleeding Status: Acute Assessment and Plan: Acute noncomplicated sigmoid diverticulitis. Pain uncontrolled in the ED, requiring admission. - CT abd/pelvis: Acute sigmoid diverticulitis, as detailed above. No abscess or free air. Small fat-containing ventral hernia inferior to the umbilicus. Benign-appearing 3 cm cystic mass in the right mid abdomen. This is essentially stable dating back to prior CT scan dated 09/15/2018. - Continue Zosyn for now- since 02/13 - IV fluids discontinued with pt tolerating diet and PO fluids fairly well. - Clear liquid diet. - Continue pain medication prn (2) Asthma: Code(s): J45.909 - Unspecified asthma, uncomplicated Status: Chronic Assessment and Plan: - Stable. - Bronchodilators PRN. (3) Hyperlipidemia: Qualifiers: Hyperlipidemia type: mixed hyperlipidemia Qualified Code(s): E78.2 - Mixed hyperlipidemia Code(s): E78.5 - Hyperlipidemia, unspecified Status: Acute Assessment and Plan: - Continue statin. Plan Diet: Full-liquid GI Prophylaxis: Not currently indicated DVT Prophylaxis: SCDs Lines: Peripheral Code Status: Full code Time Spent With Patient Time with patient: 15 - 25 minutes Subjective Date/time seen: 02/15/24 10:15 Patient states she's still has some mild lower abdominal pain but she feels much better than when she came in with severe pain. Tolerated clears well yesterday and wants to advance diet. Interval history: Patient calm on bedrest and looks to be in no acute distress. Review of Systems Review of Systems: All systems reviewed & are unremarkable except as noted in HPI and below Exam Narrative: General: Well appearing, in no acute distress. HEENT: Atraumatic, PERRL, EOM, moist mucosa. NECK: Supple. Lungs: Clear bilaterally. Heart: RRR, no murmurs. Abdomen: Soft, obese, mildly-tender to palpation, non-distended, +ve BS X4 Quadrants. Extremities: Acyanotic, no edema. Skin: Warm and dry. Neuro: Well oriented, no focal deficits. Psych: Calm and co-operative. Objective Data Vital Signs Vital Signs: Vital Signs - 24 hr 02/14/24 15:18 02/14/24 18:09 02/14/24 22:00 Temperature 97.0 F L 97.5 F L 97.5 F L Pulse Rate 70 82 80 Respiratory Rate 18 20 18 Blood Pressure 129/75 120/84 118/67 Pulse Oximetry 100 100 97 Oxygen Delivery 02/15/24 06:00 02/15/24 08:00 Temperature 97.2 F L Pulse Rate 72 Respiratory Rate 20 Blood Pressure 116/72 Pulse Oximetry 98 Oxygen Delivery Room Air Intake/Output Intake/Output: Intake & Output 02/12/24 02/13/24 02/14/24 02/15/24 23:59 23:59 23:59 23:59 Intake Total 1487 2340 Balance 1487 2340 Meds/Results Medications: Active Medications Generic Name Dose Route Start Last Admin Trade Name Freq PRN Reason Stop Dose Admin Acetaminophen 650 mg 02/14/24 15:37 Acetaminophen 325 Mg Tablet PO Q6H PRN Mild Pain (1-3) or Fever Hydrocodone Bitart/Acetaminophen 1 tab 02/14/24 15:37 02/15/24 09:46 Hydrocodone/Acetaminophen (*Crx) 5-325 Mg Tablet PO 1 tab Q6H PRN Administration Pain Rated 4-6 Atorvastatin Calcium 20 mg 02/14/24 22:35 02/14/24 23:57 Atorvastatin 20 Mg Tablet PO 20 mg QHS DUARTE Administration Piperacillin/Tazobactam/Dextrose 3.375 gm in 50 mls @ 100 mls/hr 02/14/24 18:00 02/15/24 11:36 Zosyn 3.375 Gm/Ns 50 Ml IVPB 100 mls/hr Q6H DUARTE Administration Levothyroxine Sodium 100 mcg 02/15/24 06:30 02/15/24 05:31 Levothyroxine Sodium 100 Mcg Tablet PO 100 mcg DAILY@0630 DUARTE Administration Levothyroxine Sodium 75 mcg 02/15/24 06:30 02/15/24 05:31 Levothyroxine Sodium 75 Mcg Tablet PO 75 mcg DAILY@0630 DUARTE Administration Morphine Sulfate 2 mg 02/14/24 15:37 Morphine Sulfate (*Crx) 2 Mg/Ml Inj IV PUSH Q4H PRN Pain Rated 7-10 Ondansetron HCl 4 mg 02/14/24 18:00 02/15/24 05:30 Ondansetron Inj 4 Mg/2 Ml Vial IV PUSH 4 mg Q6H PRN Administration Nausea And Vomiting Radiology Results: ITS Impressions Abdomen/Pelvis CT 02/14/24 13:09 Impression: Acute sigmoid diverticulitis, as detailed above. No abscess or free air. Small fat-containing ventral hernia inferior to the umbilicus. Benign-appearing 3 cm cystic mass in the right mid abdomen. This is essentially stable dating back to prior CT scan dated 09/15/2018. Labs Labs: Laboratory Results - last 24 hr 02/15/24 05:55 WBC 8.2 RBC 3.63 L Hgb 10.5 L Hct 33.7 L MCV 92.8 MCH 28.9 MCHC 31.2 L RDW 13.3 Plt Count 238 MPV 11.4 H Immature Gran % (Auto) 0.4 Neut % (Auto) 71.6 Lymph % (Auto) 17.8 L [place] % (Auto) 8.6 H Eos % (Auto) 1.1 Baso % (Auto) 0.5 Lymph # (Auto) 1.46 [place] # (Auto) 0.7 H Eos # (Auto) 0.1 Baso # (Auto) 0.0 Abs Immat Gran (auto) 0.03 Absolute Neuts (auto) 5.9 Absolute Nucleated RBC 0.000 Nucleated RBC % 0.0 Sodium 134 L Potassium 3.0 L Chloride 101 Carbon Dioxide 31 H Anion Gap 2 L BUN 10 Creatinine 1.10 H Estim Creat Clear Calc 66 Estimated GFR 52 L Glucose 119 H Calcium 8.4 Quality VTE Prophylaxis VTE prophylaxis: mechanical ordered Hospitalist [facility] Advance Care Plan I have confirmed that the patient's Advanced Care Plan is present, code status is documented, or surrogate decision maker is listed in patient medical record.: Yes Medication Reconciliation I have utilized all available resources to obtain, update and review the patients current medications (includes all prescriptions, OTC, herbals, cannabis, and nutritional supplements).: Yes
[2024-02-15] MEDS: ATORVASTATIN 20 MG TABLET PO (21:06)
[2024-02-15 21:29] VITALS: BP 112/67; PULSE 70; RESP 14; TEMP 36.3; O2SAT 97
[2024-02-16 06:00] VITALS: BP 109/76; PULSE 78; RESP 14; TEMP 36.7; O2SAT 94
[2024-02-16] MEDS: LEVOTHYROXINE SODIUM 75 MCG TABLET PO (06:27)
[2024-02-16] MEDS: LEVOTHYROXINE SODIUM 100 MCG TABLET PO (06:27)
[2024-02-16] MEDS: PIPERACILLN/TAZ 3.375GM/NS50ML 3.375 GM/50 ML BAG IVPB ×2 (06:29→12:20)
[2024-02-16 08:28] VITALS: O2SAT 94
[2024-02-16] MEDS: POTASSIUM CHLORIDE 20 MEQ ER TABLET 40 MEQ PO (10:55)
--- NOTE | 2024-02-16 13:16 | P.DS_ITS ---
DS: Admitting Diagnosis Discharge Date 02/16/24 Admitting Diagnosis Acute Diverticulitis DS: Discharge Diagnosis Discharge Diagnosis (1) Diverticulitis: Code(s): K57.92 - Diverticulitis of intestine, part unspecified, without perforation or abscess without bleeding Status: Acute Assessment and Plan: Acute noncomplicated sigmoid diverticulitis. Pain uncontrolled in the ED, requiring admission. - CT abd/pelvis: Acute sigmoid diverticulitis, as detailed above. No abscess or free air. Small fat-containing ventral hernia inferior to the umbilicus. Benign-appearing 3 cm cystic mass in the right mid abdomen. This is essentially stable dating back to prior CT scan dated 09/15/2018. - No signs of infection and Zosyn discontinued. - IV fluids discontinued with pt tolerating diet well. - Tolerating low fat diet well. - States pain resolved. (2) Asthma: Code(s): J45.909 - Unspecified asthma, uncomplicated Status: Chronic Assessment and Plan: - Stable. - Bronchodilators PRN. (3) Hyperlipidemia: Qualifiers: Hyperlipidemia type: mixed hyperlipidemia Qualified Code(s): E78.2 - Mixed hyperlipidemia Code(s): E78.5 - Hyperlipidemia, unspecified Status: Acute Assessment and Plan: - Continue statin. Plan Diet: Low Fat GI Prophylaxis: Not currently indicated DVT Prophylaxis: SCDs Lines: Peripheral Code Status: Full code DS: Summary Hospital Course Reason for hospitalization: Acute Diverticulitis Hospital Course: Patient presented to the hospital with abdominal pain. Patient has a Hx of multiple episodes of diverticulitis and states she tried to treat herself at home with clear liquid diet for 3-4 days but with worsening pain, she decided to come to the hospital for treatment. CT abd/pelvis done in the ER showed acute sigmoid diverticulitis. Patient was initially NPO and diet was slowly started with improvement in symptoms. She's currently able to tolerate low-fat diet with no GI distress. Patient reports abdominal pain is gone and she has had 2 BM's today and yesterday. She states she's ready for discharge as her symptoms have resolved and she's tolerating diet well. All her other chronic conditions remained stable inpatient, and patient is stable for discharge with no acute distress noted or reported prior to discharge. Status at Discharge Functional status at discharge: independent ambulation Overall status at discharge: patient is back to baseline Time Spent with Patient Time attestation: Total time spent providing and/or coordinating discharge services: Time spent: Greater than 30 minutes Exam Narrative: General: Well appearing, in no acute distress. HEENT: Atraumatic, PERRL, EOM, moist mucosa. NECK: Supple. Lungs: Clear bilaterally. Heart: RRR, no murmurs. Abdomen: Soft, obese, non-tender to palpation, non-distended, +ve BS X4 Quadrants. Extremities: Acyanotic, no edema. Skin: Warm and dry. Neuro: Well oriented, no focal deficits. Psych: Calm and co-operative. Discharge Plan Discharge Attending physician on discharge: Francesca Kraus Discharging Clinician: Bassam Hu Anticipated Discharge Date/Time: 02/16/24 13:45 Patient Disposition: Home, Self-Care Activity: as tolerated Diet: heart healthy Patient Instructions: Antibiotic Form Patient Language: Australian Stand Alone Forms: General Discharge Information Follow-up/Referrals: Denilson Larson DO [Primary Care Provider] - 1 Week Discharge Medications: Continued ergocalciferol (vitamin D2) 1,250 mcg (50,000 unit) capsule See Rx Instructions .ROUTE .COMPLEX Qty: 14 3RF Dose Instruction: TAKE 1 CAPSULE WEEKLY Rx Instructions: TAKE 1 CAPSULE WEEKLY budesonide-formoterol [Symbicort] 160-4.5 mcg/actuation HFA aerosol inhaler 2 inh inhalation DAILY Qty: 10.2 2RF albuterol sulfate [ProAir HFA] 90 mcg/actuation HFA aerosol inhaler 2 puff INHALATION Q4H PRN (Reason: Shortness Of Breath) Qty: 18 5RF atorvastatin 20 mg tablet 20 mg PO QHS Qty: 90 1RF levothyroxine 175 mcg tablet 175 mcg PO DAILY Qty: 90 0RF Date of admission: 02/14/24 13:48 Primary Care Provider: Denilson Larson Admitting Provider: Eliot Acevedo Attending physician on admission: Eliot Acevedo Condition: Stable Quality VTE Prophylaxis VTE prophylaxis: mechanical ordered If No VTE Prophylaxis Answer both mechanical and pharmacologic: Reason no mechanical VTE proph: low risk/not indicated Reason no pharmacologic proph: low risk/not indicated Hospitalist MIPS Heart Failure (Exclusion) Patient has history of Heart Transplant or Left Ventricular Assistive Device?: No IF YES, STOP HERE Heart Failure (Qualifier) Patient has current or prior documentation of LVEF less than or equal to 40%, or mod/servere depressed LVSF?: No IF NO, STOP HERE
[2024-02-16 14:00] VITALS: BP 136/85; PULSE 71; RESP 18; TEMP 36.7; O2SAT 98
== END 2024-02-16 14:05 | disposition home or self-care (01) ==
LOC: ANHED 13:43 → ANH3MEDSUR 02-16 13:47
PROVIDERS: Student in an Organized Health Care Education/Training Program; Admitting Provider Internal Medicine; Emergency Provider Emergency Medicine; PCP Family Medicine; Visit Provider Internal Medicine
DX: K57.32 Diverticulitis of large intestine without perforation or abscess without bleeding (principal); J45.909 Unspecified asthma, uncomplicated; E78.2 Mixed hyperlipidemia; G43.909 Migraine, unspecified, not intractable, without status migrainosus; D64.9 Anemia, unspecified; E03.9 Hypothyroidism, unspecified; E55.9 Vitamin D deficiency, unspecified; Z79.51 Long term (current) use of inhaled steroids; Z79.899 Other long term (current) drug therapy; Z87.891 Personal history of nicotine dependence; Z88.2 Allergy status to sulfonamides; Z91.040 Latex allergy status
CPT/HCPCS: 36415; 74177; 80048; 80053; 81001; 85025; 96361; 96365; 96374; 96375; 96376; 99285; A9270; G0378; J1171; J2270; J2405; J2543; J7120; Q9967

== ENCOUNTER 2024-02-21 10:45 | Outpatient (CLI) | payer BC, SELFPAY ==
[2024-02-21 18:10] LABS: Basophils Absolute Auto 0.1 K/mm3 (0.0-0.1); Eosinophils Absolute Auto 0.2 K/mm3 (0-0.3); Eosinophils Percent Auto 1.9 % (0-4.4); Hematocrit 39.9 % (37.0-47.0); Hemoglobin 12.1 g/dL (12.0-15.0); Immature Granulocyte Absolute 0.09 K/mm3 (0.00-0.031); Immature Granulocyte Percent A 1.1 % (0-0.5); Lymphocytes Absolute Auto 2.71 K/mm3 (0.9-3.2); Lymphocytes Percent Auto 33.5 % (18.3-44.2); Mean Corpuscular HGB Conc 30.3 g/dl (32-36); Mean Corpuscular Hemoglobin 29.1 pg (26-34); Mean Corpuscular Volume 95.9 fl (80-100); Mean Platelet Volume 11.1 fl (7.4-10.4); Monocytes Absolute Auto 0.5 K/mm3 (0.1-0.6); Monocytes Percent Auto 6.7 % (2.6-8.5); Neutrophils Absolute Auto 4.5 K/mm3 (1.3-6.7); Neutrophils Percent Auto 55.8 % (45.5-73.1); Platelet Count Result 382 k/mm3 (150-375); Red Blood Count 4.16 M/mm3 (4.2-5.4); Red Cell Distribution Width 13.6 % (11.5-14.5); White Blood Count 8.1 K/mm3 (4.5-10.0)
[2024-02-21 18:22] LABS: Iron 77 ug/dL (37-170)
[2024-02-21 18:25] LABS: Alanine Aminotransferase 52 U/L (6-35); Albumin Level 4.8 g/dL (3.5-5.1); Alkaline Phosphatase 92 U/L (38-126); Anion Gap 8 mmol/L (4-12); Aspartate Amino Transferase 50 U/L (14-36); Bilirubin,Total 0.5 mg/dL (0.2-1.3); Blood Urea Nitrogen 19 mg/dL (7-17); Calcium 9.4 mg/dL (8.4-10.2); Carbon Dioxide 31 mmol/L (22-30); Chloride 104 mmol/L (98-107); Estimated Glomerular Filt Rate 58; Glucose 124 mg/dL (65-110); Potassium 3.8 mmol/L (3.4-5.0); Sodium 143 mmol/L (137-145)
[2024-02-21 18:36] LABS: Percent Iron Saturation 22 % (20-50)
[2024-02-21 18:41] LABS: Free T4 Free Thyroxine 0.81 ng/dL (0.78-2.19)
[2024-02-21 19:22] LABS: Folic Acid 4.4 ng/mL (2.76->20)
[2024-02-24 15:12] LABS: Tissue Transglutaminase IgA Ab <1.0 U/mL; Tissue Transglutaminase IgG Ab <1.0 U/mL
== END 2024-02-21 10:46 | disposition home or self-care (01) ==
LOC: ANHGOSHLAB 10:45
PROVIDERS: PCP Family Medicine; Visit Provider Family Medicine
DX: R53.83 Other fatigue (principal); Z13.228 Encounter for screening for other metabolic disorders; D50.9 Iron deficiency anemia, unspecified; D64.9 Anemia, unspecified; E03.9 Hypothyroidism, unspecified
CPT/HCPCS: 36415; 80053; 82607; 82728; 82746; 83540; 83550; 84439; 84443; 85025; 86364

== ENCOUNTER 2024-03-12 08:31 | Outpatient (CLI) | payer BC, SELFPAY ==
[2024-03-12 09:19] LABS: Basophils Absolute Auto 0.1 K/mm3 (0.0-0.1); Basophils Percent Auto 0.5 % (0.2-1.2); Eosinophils Absolute Auto 0.1 K/mm3 (0-0.3); Eosinophils Percent Auto 0.4 % (0-4.4); Hematocrit 38.7 % (37.0-47.0); Hemoglobin 12.4 g/dL (12.0-15.0); Immature Granulocyte Absolute 0.07 K/mm3 (0.00-0.031); Immature Granulocyte Percent A 0.5 % (0-0.5); Lymphocytes Absolute Auto 1.61 K/mm3 (0.9-3.2); Lymphocytes Percent Auto 11.9 % (18.3-44.2); Mean Corpuscular Hemoglobin 29.5 pg (26-34); Mean Corpuscular Volume 91.9 fl (80-100); Mean Platelet Volume 11.6 fl (7.4-10.4); Monocytes Absolute Auto 1.2 K/mm3 (0.1-0.6); Monocytes Percent Auto 8.5 % (2.6-8.5); Neutrophils Absolute Auto 10.6 K/mm3 (1.3-6.7); Neutrophils Percent Auto 78.2 % (45.5-73.1); Platelet Count Result 237 k/mm3 (150-375); Red Blood Count 4.21 M/mm3 (4.2-5.4); Red Cell Distribution Width 13.1 % (11.5-14.5); White Blood Count 13.5 K/mm3 (4.5-10.0)
[2024-03-12 09:28] LABS: Alanine Aminotransferase 44 U/L (6-35); Albumin Level 4.3 g/dL (3.5-5.1); Alkaline Phosphatase 116 U/L (38-126); Anion Gap 6 mmol/L (4-12); Aspartate Amino Transferase 36 U/L (14-36); Bilirubin,Total 1.2 mg/dL (0.2-1.3); Blood Urea Nitrogen 15 mg/dL (7-17); Calcium 9.5 mg/dL (8.4-10.2); Carbon Dioxide 31 mmol/L (22-30); Chloride 102 mmol/L (98-107); Estimated Glomerular Filt Rate > 60; Glucose 113 mg/dL (65-110); Potassium 3.8 mmol/L (3.4-5.0); Sodium 139 mmol/L (137-145)
== END 2024-03-12 08:32 | disposition home or self-care (01) ==
LOC: ANHGOSHLAB 08:32
PROVIDERS: PCP Family Medicine; Visit Provider Family Medicine
DX: R53.83 Other fatigue (principal); Z13.228 Encounter for screening for other metabolic disorders
CPT/HCPCS: 36415; 80053; 85025

== ENCOUNTER 2024-03-27 01:54 | Day surgery (SDC) | payer BC, SELFPAY ==
[2024-03-17 09:37] VITALS: BMI 36.0
[2024-03-27 09:58] VITALS: BP 123/81; PULSE 80; RESP 20; TEMP 35.9; O2SAT 99
[2024-03-27] MEDS: LACTATED RINGERS 1,000 ML 150 ML IV CONT (10:09)
--- NOTE | 2024-03-27 11:53 | PM.IMHP ---
H&P: HPI History of Present Illness Date/Time: 03/27/24 11:53 Chief Complaint: family history colorectal cancer Narrative: This patient has family history of colorectal cancer. her father had colorectal cancer. In addition, she had an episode of acute diverticulitis 6 weeks ago. She is here for colonoscopy. Her last colonoscopy was 5 years ago. Review of Systems Review of Systems: All systems reviewed & are unremarkable except as noted in HPI and below PMFSH Past Medical History Medical History Family history of colon cancer in father Migraine without aura, not intractable, without status migrainosus Asthma Anemia Diverticulitis severe diverticulitis with sepsis 09/2018 Vitamin D deficiency Hypothyroidism Screening breast examination 2014 Surgical History Surgical History History of hysterectomy, supracervical (05/12/20) History of bilateral tubal ligation H/O arthroscopy of knee 1996 History of cholecystectomy 2001 H/O section 2003 H/O colonoscopy 2012 Family History Family History Mother Family history of thyroid disease Family history of cardiovascular disease Family history of chronic obstructive pulmonary disease Acute myocardial infarction Father Hypertension, Onset Age: 77 Family history of malignant neoplasm, Onset Age: 77 Family history of chronic obstructive pulmonary disease, Onset Age: 77 Family history of emphysema, Onset Age: 77 Social History Social History Social History: caffeine 1-2 cups coffee daily Smoking status: Former smoker Tobacco type: cigarettes Smoking end date: 04/03/00 Alcohol intake: never Alcohol use details: social Substance use: never Do You Feel Safe in your Home?: Yes Lack of Transportation: No Lack of Food: Never True Current Housing: I Have Housing Concerned About Future Housing: No Difficulty Paying Gas/Electric Bills: No Difficulty Paying for Meds: No Currently Unemployed: No Education: High School Diploma/GED Difficulty w/ Childcare or Family Care: No Spiritual care concerns: No Meds Home Medications and Allergies Home Medications ?Medication ?Instructions ?Recorded ?Confirmed ?Type ergocalciferol (vitamin D2) 1,250 See Rx Instructions .Route 11/29/22 03/27/24 Rx mcg (50,000 unit) capsule .COMPLEX #14 caps budesonide-formoterol HFA 160 2 inh inhalation DAILY #10.2 grams 11/30/22 03/27/24 Rx mcg-4.5 mcg/actuation aerosol inhaler (Symbicort) albuterol sulfate 90 mcg/actuation 2 puff inhalation Q4H PRN 08/22/23 03/17/24 Rx aerosol inhaler (ProAir HFA) Shortness Of Breath #18 grams atorvastatin 20 mg tablet 20 mg PO QHS #90 tabs 01/13/24 03/27/24 Rx levothyroxine 175 mcg tablet 175 mcg PO DAILY #90 tabs 02/25/24 03/27/24 Rx ciprofloxacin HCl 500 mg tablet 500 mg PO Q12H #20 tabs 03/12/24 03/27/24 Rx metronidazole 500 mg tablet 500 mg PO Q8H #30 tabs 03/12/24 03/27/24 Rx Allergies Allergy/AdvReac Type Severity Reaction Status Date / Time latex Allergy Unknown Asthma Verified 03/27/24 09:56 Sulfa (Sulfonamide Allergy Unknown Rash Verified 03/27/24 09:56 Antibiotics) Vital Signs Vital Signs - 24 hr 03/27/24 09:58 Temperature 96.7 F L Pulse Rate 80 Respiratory Rate 20 Blood Pressure 123/81 Pulse Oximetry 99 Oxygen Delivery Room Air Exam Const: General: cooperative and healthy appearing Resp: Effort & Inspection: normal respiratory effort and able to speak in complete sentences Auscultation: clear to auscultation bilaterally Cardio: Rate: regular rate Rhythm: regular rhythm GI: Inspection: normal to inspection GI Palp: No No hepatosplenomegaly present Auscultation: normal bowel sounds Rectal Exam: deferred Skin: General skin exam: normal color Psych: Appearance: grossly normal Mental Status: mental status grossly normal Assessment and Plan Assessment and plan (1) Family history of colon cancer in father: Code(s): Z80.0 - Family history of malignant neoplasm of digestive organs Status: Acute Assessment and Plan: The patient is deemed a good candidate for the procedure. Consent signed. Will proceed.
--- NOTE | 2024-03-27 12:03 | WPDANESEPPF ---
Anes - Initial Pre Proc Eval Procedure: Operation Date: 03/27/24 11:00 Proposed Procedures p Colonoscopy - Jakob Andrade MD Date/Time: 03/27/24 12:03 Surgeon: Jakob Andrade MD Pre Op Diagnosis: diverticulosis of large intestine w/o performation Patient Data Age: 53 Gender: F Height: 1.7 m Weight: 101.4 kg Last Vital Signs Temp 96.7 F L 03/27/24 09:58 Pulse 80 03/27/24 09:58 Resp 20 03/27/24 09:58 BP 123/81 03/27/24 09:58 Pulse Ox 99 03/27/24 09:58 O2 Del Method Room Air 03/27/24 09:58 Allergies Allergy/AdvReac Type Severity Reaction Status Date / Time latex Allergy Unknown Asthma Verified 03/27/24 09:56 Sulfa (Sulfonamide Allergy Unknown Rash Verified 03/27/24 09:56 Antibiotics) Home Medications ?Medication ?Instructions ?Recorded ?Confirmed ?Type ergocalciferol (vitamin D2) 1,250 See Rx Instructions .Route 11/29/22 03/27/24 Rx mcg (50,000 unit) capsule .COMPLEX #14 caps budesonide-formoterol HFA 160 2 inh inhalation DAILY #10.2 grams 11/30/22 03/27/24 Rx mcg-4.5 mcg/actuation aerosol inhaler (Symbicort) albuterol sulfate 90 mcg/actuation 2 puff inhalation Q4H PRN 08/22/23 03/17/24 Rx aerosol inhaler (ProAir HFA) Shortness Of Breath #18 grams atorvastatin 20 mg tablet 20 mg PO QHS #90 tabs 01/13/24 03/27/24 Rx levothyroxine 175 mcg tablet 175 mcg PO DAILY #90 tabs 02/25/24 03/27/24 Rx ciprofloxacin HCl 500 mg tablet 500 mg PO Q12H #20 tabs 03/12/24 03/27/24 Rx metronidazole 500 mg tablet 500 mg PO Q8H #30 tabs 03/12/24 03/27/24 Rx Patient hx anesthesia problems: other (Slow to emerge in the past per pt. ) Family hx anesthesia problems: none Results Review: All pre-operative results and documents have been reviewed as part of the pre-operative evaluation. [facility] Past Medical History Medical History Family history of colon cancer in father Migraine without aura, not intractable, without status migrainosus Asthma Anemia Diverticulitis severe diverticulitis with sepsis 09/2018 Vitamin D deficiency Hypothyroidism Screening breast examination 2014 Surgical History Surgical History History of hysterectomy, supracervical (05/12/20) History of bilateral tubal ligation H/O arthroscopy of knee 1996 History of cholecystectomy 2001 H/O section 2003 H/O colonoscopy 2012 Family History Family History Mother Family history of thyroid disease Family history of cardiovascular disease Family history of chronic obstructive pulmonary disease Acute myocardial infarction Father Hypertension, Onset Age: 77 Family history of malignant neoplasm, Onset Age: 77 Family history of chronic obstructive pulmonary disease, Onset Age: 77 Family history of emphysema, Onset Age: 77 Social History Social History Social History: caffeine 1-2 cups coffee daily Smoking status: Former smoker Tobacco type: cigarettes Smoking end date: 04/03/00 Alcohol intake: never Alcohol use details: social Substance use: never Do You Feel Safe in your Home?: Yes Lack of Transportation: No Lack of Food: Never True Current Housing: I Have Housing Concerned About Future Housing: No Difficulty Paying Gas/Electric Bills: No Difficulty Paying for Meds: No Currently Unemployed: No Education: High School Diploma/GED Difficulty w/ Childcare or Family Care: No Spiritual care concerns: No Anes - Eval Final PreProcedure Day of Procedure 03/27/24 12:03 Patient weight: obese Heart: regular rate and rhythm Lungs: normal air movement Airway: Mallampati scale and special considerations (Upper edentulous. ) Neurological: alert and oriented Last oral intake: >/= 8 hours ASA classification: III Emergent: no Anesthetic plan: proceed Anesthesia type and monitoring: general GIVS and standard monitoring Results Review: All pre-operative results and documents have been reviewed as part of the pre-operative evaluation. Hyperlipidemia, ARELIS on CPAP, asthma, ex smoker, quit 1999. Informed Consent: The patient's anesthetic plan and its attendant risks and benefits were discussed with the patient/family/POA. Questions were solicited and answers provided to the satisfaction of the patient/family/POA.
[2024-03-27] MEDS: SIMETHICONE ORAL SUSPENSION 20 MG/0.3 ML 30 ML BOTTLE 0.6 ML IRRIGATION (12:21)
[2024-03-27 12:31] VITALS: BP 113/69; PULSE 84; RESP 13; O2SAT 99
[2024-03-27 12:41] VITALS: BP 113/67; PULSE 77; RESP 23; O2SAT 100
[2024-03-27 12:51] VITALS: BP 124/60; PULSE 78; RESP 20; O2SAT 100
== END 2024-03-27 13:05 | disposition home or self-care (01) ==
PROVIDERS: PCP Family Medicine; Referring Provider Internal Medicine Gastroenterology; Visit Provider Internal Medicine Gastroenterology
PROC: 0DJD8ZZ Inspection of Lower Intestinal Tract, Via Natural or Artificial Opening Endoscopic (ICD-10-PCS; CPT 45378; principal; 2024-03-27 11:00)
DX: Z12.11 Encounter for screening for malignant neoplasm of colon (principal); D12.2 Benign neoplasm of ascending colon; K57.30 Diverticulosis of large intestine without perforation or abscess without bleeding; E03.9 Hypothyroidism, unspecified; J45.909 Unspecified asthma, uncomplicated; D64.9 Anemia, unspecified; E55.9 Vitamin D deficiency, unspecified; E66.9 Obesity, unspecified; Z68.35 Body mass index [BMI] 35.0-35.9, adult; Z79.51 Long term (current) use of inhaled steroids; Z98.890 Other specified postprocedural states; Z98.51 Tubal ligation status; Z90.49 Acquired absence of other specified parts of digestive tract; Z87.891 Personal history of nicotine dependence; Z87.19 Personal history of other diseases of the digestive system; Z80.0 Family history of malignant neoplasm of digestive organs; Z82.49 Family history of ischemic heart disease and other diseases of the circulatory system
CPT/HCPCS: 45385; 88305; J2003; J2704; J7120

== ENCOUNTER 2024-04-10 08:19 | Outpatient (CLI) | payer BC, SELFPAY ==
[2024-04-10 14:42] LABS: Thyroid Stimulating Hormone 0.053 uIU/mL (0.465-4.680)
[2024-04-10 14:53] LABS: Free T4 Free Thyroxine 1.49 ng/dL (0.78-2.19); Vitamin D 25 Hydroxy 31.3 ng/mL
[2024-04-10 14:58] LABS: Hemoglobin A1C 6.2 % (<5.7)
[2024-04-13 19:43] LABS: Thyroid Peroxidase Antibodies 135 IU/mL (<9)
== END 2024-04-10 08:20 | disposition home or self-care (01) ==
LOC: ANHGOSHLAB 08:20
PROVIDERS: Family Medicine; PCP Family Medicine; Visit Provider Internal Medicine
DX: E03.9 Hypothyroidism, unspecified (principal); E55.9 Vitamin D deficiency, unspecified; E78.2 Mixed hyperlipidemia; R73.9 Hyperglycemia, unspecified; K57.92 Diverticulitis of intestine, part unspecified, without perforation or abscess without bleeding; R03.0 Elevated blood-pressure reading, without diagnosis of hypertension
CPT/HCPCS: 36415; 82306; 83036; 84439; 84443; 86376

== ENCOUNTER 2024-05-01 08:10 | Outpatient (CLI) | payer BC, SELFPAY | END 2024-05-01 08:11 | disposition home or self-care (01) | PROVIDERS: Visit Provider Internal Medicine | DX: E03.9 Hypothyroidism, unspecified (principal); E55.9 Vitamin D deficiency, unspecified; E78.2 Mixed hyperlipidemia | CPT/HCPCS: 76536 ==

== ENCOUNTER 2025-01-27 12:39 | Outpatient (CLI) | payer BC, SELFPAY ==
[2025-01-27 18:29] LABS: Alanine Aminotransferase 18 U/L (6-35); Albumin Level 4.4 g/dL (3.5-5.1); Alkaline Phosphatase 78 U/L (38-126); Anion Gap 9 mmol/L (4-12); Aspartate Amino Transferase 33 U/L (14-36); Bilirubin,Total 0.6 mg/dL (0.2-1.3); Blood Urea Nitrogen 16 mg/dL (7-17); Calcium 9.5 mg/dL (8.4-10.2); Carbon Dioxide 28 mmol/L (22-30); Chloride 105 mmol/L (98-107); Cholesterol 104 mg/dL (0-200); Estimated Glomerular Filt Rate > 60; Glucose 66 mg/dL (65-110); HDL Direct 34 mg/dL; Potassium 4.1 mmol/L (3.4-5.0); Sodium 142 mmol/L (137-145); Total Protein 7.8 g/dL (6.3-8.2); Triglycerides 81 mg/dL (<150)
[2025-01-27 18:34] LABS: Hematocrit 40.6 % (37.0-47.0); Hemoglobin 13.2 g/dL (12.0-15.0); Immature Granulocyte Percent A 0.3 % (0-0.5); Lymphocytes Absolute Auto 2.79 K/mm3 (0.9-3.2); Mean Corpuscular HGB Conc 32.5 g/dl (32-36); Mean Corpuscular Hemoglobin 29.0 pg (26-34); Mean Corpuscular Volume 89.2 fl (80-100); Nucleated Red Blood Cells Absolute Auto 0.000 K/mm3 (0.0-0.012); Nucleated Red Blood Cells Perc 0.0 % (0.0-0.2); Platelet Count Result 306 k/mm3 (150-375); Red Blood Count 4.55 M/mm3 (4.2-5.4); White Blood Count 7.9 K/mm3 (4.5-10.0)
[2025-01-27 18:42] LABS: Free T4 Free Thyroxine 1.57 ng/dL (0.78-2.19)
[2025-01-27 19:05] LABS: Thyroid Stimulating Hormone 3.120 uIU/mL (0.465-4.680)
[2025-01-29 14:12] LABS: Vitamin B12 561.0 pg/mL (239-931)
== END 2025-01-27 12:40 | disposition home or self-care (01) ==
LOC: ANHGOSHLAB 12:40
PROVIDERS: PCP Family Medicine; Visit Provider Internal Medicine
DX: E78.2 Mixed hyperlipidemia (principal); E03.9 Hypothyroidism, unspecified; E55.9 Vitamin D deficiency, unspecified; G43.009 Migraine without aura, not intractable, without status migrainosus; D64.9 Anemia, unspecified; Z00.00 Encounter for general adult medical examination without abnormal findings; J45.909 Unspecified asthma, uncomplicated
CPT/HCPCS: 36415; 80053; 80061; 82306; 82607; 84439; 84443; 85025

== ENCOUNTER 2025-02-01 08:03 | Outpatient (CLI) | payer BC, SELFPAY ==
--- NOTE | ~2025-02-01 | XR_ITS ---
EXAMINATION: XR chest 2V, 02/01/2025 9:17 INSTRUCTIONAL SPECIALIST HISTORY: CHEST PAIN x 6 WKS COMPARISON: No comparisons available. Technique: 2 views obtained. Findings: The lungs are clear, no effusion. No pneumothorax. Heart is normal size. Mediastinal and hilar contours are within normal limits. Bony thorax no acute abnormality. Impression: No acute cardiopulmonary abnormality. Reviewed, dictated and finalized at location P. RUCTIONAL SPECIALIST Impression: No acute cardiopulmonary abnormality.
--- NOTE | 2025-02-01 08:55 | ECG_ITS ---
Test Date: 2025-02-01 09:00:56 Measurements Intervals [place] Rate: 81 P: 55 PA: 192 QRS: 20 QRSD: 87 T: 28 QT: 373 QTc: 434 Interpretive Statements SINUS RHYTHM POSSIBLE RIGHT VENTRICULAR CONDUCTION DELAY BORDERLINE ST-T WAVE ABNORMALITY- INFERIOR LEADS BASELINE ARTIFACT- II, III, AVL, AVF BORDERLINE ECG No previous ECG available for comparison Electronically Signed On 02-01-2025 09:03:36 FAMILY SERVICES SPECIALIST by Ti Mcfarland D.O.
[2025-02-01 10:39] LABS: Troponin I < 0.012 ng/mL (0.000-0.034)
== END 2025-02-01 08:04 | disposition home or self-care (01) ==
PROVIDERS: PCP Family Medicine; Visit Provider Family Medicine
DX: R07.89 Other chest pain (principal)
CPT/HCPCS: 36415; 71046; 84484; 93005

== ENCOUNTER 2025-02-12 14:41 | Outpatient (CLI) | payer BC, SELFPAY ==
--- NOTE | 2025-02-12 14:50 | ECHO_ITS ---
Patient Info Name: Dianne Chaidez Age: 54 years : 1970 Gender: Female Ht: 67 in Wt: 192 lbs BSA: 2.05 m2 HR: 72 bpm BP: 126 / 93 mmHg Heart Rhythm: Sinus Rhythm Technical Quality: Fair Exam Date: 02/12/2025 2:54 PM Patient Status: O Admit Date: 02/12/2025 Exam Type: CA echo doppler color flow Complete two-dimensional, color flow and Doppler transthoracic echocardiogram is performed. Entry Specialists: Alix Fung Attending Provider: Macho Betancur Summary 1. Complete two-dimensional, color flow and Doppler transthoracic echocardiogram is performed. 2. Left ventricular chamber dimension is mildly enlarged. 3. Left ventricular systolic function is normal, estimated at 60-65. 4. The left ventricular diastolic function is abnormal. 5. E/e' 15 is elevated. 6. There is trace tricuspid valve regurgitation. 7. No pulmonary hypertension, estimated pulmonary arterial systolic pressure is 20 mmHg. Left Ventricle E/e' 15 is elevated. Left ventricular chamber dimension is mildly enlarged. Left ventricular systolic function is normal, estimated at 60-65. The left ventricular diastolic function is abnormal. Right Ventricle Right ventricular chamber dimension is normal. Right ventricular systolic function is normal and with normal TAPSE 2.0 cm. Left Atria Left atrial chamber dimension is normal. Right Atria Right atrial chamber dimension is normal. Aortic Valve The aortic valve is trileaflet. There is no aortic valve stenosis. There is no aortic valve regurgitation. Pulmonic Valve There is no pulmonic regurgitation. Mitral Valve There is no mitral valve stenosis. There is no mitral valve regurgitation. Tricuspid Valve There is trace tricuspid valve regurgitation. No pulmonary hypertension, estimated pulmonary arterial systolic pressure is 20 mmHg. Pericardium/Pleural There is no pericardial effusion. Inferior Vena Cava Normal inferior vena cava with >50% collapse upon inspiration consistent with normal right atrial pressure, 5 mmHg. Aorta The aortic root size at the sinus of Valsalva is normal. Left Ventricular Outflow Tract Name Value Normal LVOT 2D LVOT Diameter 2.0 cm LVOT Doppler LVOT Peak Velocity 96 cm/s LVOT Peak Gradient 4 mmHg LVOT Mean Gradient 2 mmHg LVOT VTI 19 cm LVOT VTI/AV VTI Ratio 0.8 LVOT Stroke Volume 62 ml LVOT CO 4.2 l/min LVOT CI 2.1 l/min/m2 Pulmonic Valve Name Value Normal RVOT Doppler RVOT Peak Velocity 76 cm/s RVOT Peak Gradient 2 mmHg PV Doppler PV Peak Velocity 85 cm/s PV Peak Gradient 3 mmHg Mitral Valve Name Value Normal MV Diastolic Function MV E Peak Velocity 94 cm/s MV A Peak Velocity 89 cm/s MV E/A 1.1 MV Decel Time (PW) 191 ms MV Annular TDI MV E/e' (Septal) 17.3 MV E/e' (Lateral) 13.6 MV E/e' (Average) 15.5 Tricuspid Valve Name Value Normal TV Regurgitation Doppler TR Peak Velocity 195 cm/s TR Peak Gradient 11 mmHg Estimated PAP/RSVP RA Pressure 5 mmHg <=5 PA Systolic Pressure 20 mmHg <36 RV Systolic Pressure 20 mmHg <36 TV Annular TDI TV Lateral Delores s' Velocity 10.3 cm/s >=9.5 Aorta Name Value Normal Ascending Aorta Ao Root Diameter (MM) 3.2 cm Ao Root Diam Index (MM) 1.6 cm/m2 Aortic Valve Name Value Normal AV Doppler AV Peak Velocity 128 cm/s AV Peak Gradient 7 mmHg AV Mean Gradient 4 mmHg AV VTI 24 cm AV Area (Cont Eq VTI) 2.6 cm2 >=3.0 AV Area (Cont Eq Marck) 2.5 cm2 AV DI (Marck) 0.75 AV Regurgitation 2D LVOT Area 3.3 cm2 Ventricles Name Value Normal LV Dimensions 2D/MM IVS Diastolic Thickness (2D) 0.9 cm 0.6-1.0 LVID Diastole (2D) 5.5 cm 3.8-5.2 LVIW Diastolic Thickness (2D) 0.9 cm 0.6-0.9 LVID Systole (2D) 3.5 cm 2.2-3.5 LVOT Diameter 2.0 cm LV Mass (2D Cubed) 183.05 g 67.00-162.00 LV Mass Index (2D Cubed) 89 g/m2 43-95 Relative Wall Thickness (2D) 0.32 <=0.42 LV Fractional Shortening/Ejection Fraction 2D/MM LV Fractional Shortening (2D) 36 % 27-45 LV EF (2D Teichholz) 65 % LV Diastolic Volume (4C MOD) 67 ml LV EF (4C MOD) 66 % LV Diastolic Volume (2C MOD) 66 ml LV EF (2C MOD) 68 % LV Diastolic Volume (BP MOD) 67 ml 46-106 LV Diastolic Volume Index (BP MOD) 33 ml/m2 29-61 LV Systolic Volume (BP MOD) 22 ml 14-42 LV Systolic Volume Index (BP MOD) 11 ml/m2 8-24 LV EF (BP MOD) 67 % 54-74 LV Diastolic Length (4C) 7.3 cm LV Systolic Length (4C) 6.4 cm LV Stroke Volume (4C MOD) 45 ml Atria Name Value Normal LA Dimensions LA Dimension (MM) 3.7 cm 2.7-3.8 LA Volume (4C A-L) 46 ml LA Volume (BP A-L) 47 ml RA Dimensions RA Systolic Major [place] Length (4C) 4.4 cm 2.2-2.8 RA Area (4C) 12.8 cm2 <=18.0 Report Signatures
== END 2025-02-12 14:42 | disposition home or self-care (01) ==
PROVIDERS: PCP Family Medicine; Visit Provider Family Medicine
DX: R07.89 Other chest pain (principal)
CPT/HCPCS: 93306